=== PATIENT | male | born 1965 | race Caucasian/White ===

== ENCOUNTER → 2020-08-06 10:33 | Outpatient (BNVA) | payer OTHER, SELFPAY | PROVIDERS: Family Provider Nurse Practitioner Family; PCP Nurse Practitioner Family; Visit Provider Internal Medicine | DX: Z20.828 Contact with and (suspected) exposure to other viral communicable diseases (principal) | CPT/HCPCS: 87635 ==

== ENCOUNTER → 2021-08-08 10:45 | Outpatient (BNVA) | payer BC, SELFPAY | PROVIDERS: Family Provider Nurse Practitioner Family; PCP Nurse Practitioner Family; Visit Provider Orthopaedic Surgery | DX: M54.50 Low back pain, unspecified (principal); G89.29 Other chronic pain; M47.816 Spondylosis without myelopathy or radiculopathy, lumbar region | CPT/HCPCS: 72110 ==

== ENCOUNTER → 2021-08-12 11:26 | Outpatient (BNVA) | payer BC, SELFPAY | PROVIDERS: Family Provider Nurse Practitioner Family; PCP Nurse Practitioner Family; Visit Provider Surgery | DX: Z01.812 Encounter for preprocedural laboratory examination (principal); Z20.822 Contact with and (suspected) exposure to COVID-19 | CPT/HCPCS: 87635 ==

== ENCOUNTER 2021-08-15 08:29 | Day surgery (SDC) | payer BC, SELFPAY ==
[2021-08-12 14:04] VITALS: BMI 28.5
--- NOTE | 2021-08-15 08:40 | ANES.PREANE2 ---
Pre-Anesthetic Assessment Pre-Anesthetic Assessment: Height/Weight: Height 1.83 m Weight 95.254 kg Preop Diagnosis: Screening Proposed Procedure: Operation Date: 08/15/21 09:30 Proposed Procedures p Colonoscopy 30491 Z12.11(Not Applicable) - Martin Bethea MD Familial anesthetic complications: None Was Beta Sander taken within 24 hours: N/A Was Clonidine taken within 24 hours: N/A Last intake: > 8 hrs Social: Social History: No alcohol and No tobacco Exam: Pre-Anes Outpt Exam: alert, oriented x 3, clear to auscultation bilaterally and regular rate & rhythm Airway: Cervical ROM: WNL MP: 3 Dentition: Full Musc/skel: Musc/skel: Lower Back Pain Anesthetic Plan: ASA status: 1 Risk of > 500 ml blood loss (7ml/kg in children): No PFSH Anesthesia PFSH: Social History (Updated 08/05/20 @ 14:38 by Darleen Hickey CMA) Smoking and tobacco status: never smoked Alcohol intake: never Data Anesthesia Cardiac Studies: No Data to Display
[2021-08-15 08:59] VITALS: BP 142/103; PULSE 74; RESP 18; TEMP 36.4; O2SAT 98
--- NOTE | 2021-08-15 09:05 | P.HP_ITS ---
Same Day Surgery H&P Indication for Procedure/HPI DATE OF PROCEDURE: August 15, 2021 CHIEF COMPLAINT/INDICATIONFOR SURGICAL PROCEDURE: Screening colonoscopy PREOP DIAGNOSIS: Screening colonoscopy PLANNED PROCEDURE: Operation Date: 08/15/21 09:30 Proposed Procedures p Colonoscopy 68044 Z12.11(Not Applicable) - Martin Bethea MD This is a pleasant 56 years old gentleman referred to my practice to discuss screening colonoscopy. Patient never had a colonoscopy before he reports history of hemorrhoids. No history of colon cancer that he is aware of, denies any bleeding or anesthesia issues. ROS All systems have been reviewed negative except as per the above or per problem list. Medications/Allergies* Home Medications Medication Instructions Recorded Confirmed Type hydrocodone-acetaminophen 1 tab PO Q4H PRN 08/12/21 08/15/21 History Allergies/Adverse Reactions Allergy/AdvReac Type Severity Reaction Status Date / Time No Known Allergies Allergy Verified 08/15/21 09:05 Pertinent History/Comorbid Conditions* Social History Smoking and tobacco status: never smoked Alcohol intake: never Pertinent Exam Findings alert, oriented x 3, clear to auscultation bilaterally, regular rate & rhythm and procedure specific exam findings (Abdominal examination nontender nondistended soft) Recommendations Surgery/Procedure today (Colonoscopy with possible biopsy) Other Plans: Plan of care; After thorough history and physical examination and reviewing the chart, plan to perform screening colonoscopy. I discussed with the patient in details the risks,benefits,alternatives and indications.The risk of aspiration, bleeding, soft tissue injury, perforation of the colon and other potential concomitant complications were explained to the patient in details,also the potential need for Laproscoy/Laparotomy to repair any related complications including but not limited to colectomy and or Closotomy.The patient understood this well and did agree to proceed. Rationale was carefully and clearly discussed with the patient.Appropriate informed consent have been reviewed and signed All questions have been answered and all concerns have been addressed to patient's satisfaction. 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
[2021-08-15] MEDS: sodium chloride 0.9% 1,000 ML 30 ML IV (09:26)
[2021-08-15 10:15] VITALS: BP 132/91; PULSE 74; RESP 12; TEMP 36.2; O2SAT 95
--- NOTE | 2021-08-15 10:19 | ANE.PACU2 ---
Inpatient post-anesthesia follow up: Airway intact: Yes Vital signs: Temperature 97.6 F Pulse Rate 74 Respiratory Rate 18 Blood Pressure 142/103 Pulse Oximetry 98 Oxygen Delivery Me thod Room Air Oxygen Flow Rate Fraction of Inspir ed Oxygen Hydration adequate: Yes Nausea and vomiting: No Pain level: 1 Mental status: Baseline
[2021-08-15 10:26] VITALS: BP 120/92; PULSE 70; RESP 16; O2SAT 92
== END 2021-08-15 10:45 | disposition home or self-care (01) ==
PROVIDERS: PCP Nurse Practitioner Family; Visit Provider Surgery
PROC: 0DJD8ZZ Inspection of Lower Intestinal Tract, Via Natural or Artificial Opening Endoscopic (ICD-10-PCS; CPT 45378; principal; 2021-08-15 09:30)
DX: Z12.11 Encounter for screening for malignant neoplasm of colon (principal); K57.30 Diverticulosis of large intestine without perforation or abscess without bleeding; D12.5 Benign neoplasm of sigmoid colon
CPT/HCPCS: 45380; 88305; J2704; J7030

== ENCOUNTER 2022-11-18 14:12 | Emergency (ER) | payer BC, SELFPAY ==
[2022-11-18 14:22] VITALS: BP 179/104; PULSE 87; RESP 16; TEMP 36.6; O2SAT 98
--- NOTE | 2022-11-18 14:28 | ECG_ITS ---
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 Measurements Intervals [place] Rate: 83 P: 10 IN: 119 QRS: 3 QRSD: 82 T: 94 QT: 333 QTc: 391 Interpretive Statements SINUS RHYTHM WITH SHORT IN INTERVAL NONSPECIFIC T-WAVE ABNORMALITY No previous ECG available for comparison Electronically Signed On 11-18-2022 20:40:32 CDT by Juan R Alford M.D. [email or web address].[email or web address]/store/[id number] f
--- NOTE | 2022-11-18 15:34 | XR_ITS ---
WS: [id number] Exam: XR chest 1V portable [id number] Date/Time of Exam: 11/18/2022 3:34 PM Reason For Exam: cp No priors. The lungs are clear and fully expanded. Normal cardiomediastinal silhouette. Scattered calcified gran ulomas. Regional bony structures appear normal. XR/XR chest 1V portable [id number] IMPRESSION: 1. No acute cardiopulmonary finding.
[2022-11-18 16:13] VITALS: BP 145/105; PULSE 84; RESP 19; TEMP 36.6; O2SAT 95
[2022-11-18 16:46] LABS: Basophils # 0.1 10^3/uL (0.0-0.1); Basophils % 0.6 %; Eosinophils # 0.2 10^3/uL (0.0-0.8); Eosinophils % 2.1 %; Hematocrit 59.1 % (42.0-52.0); Hemoglobin 19.5 g/dL (11.7-16.6); Lymphocytes # 1.3 10^3/uL (0.8-4.8); Lymphocytes % 11.6 %; Mean Corpuscular Hemoglobin 31.7 pg (28.0-34.0); Mean Corpuscular Volume 95.9 fl (80-94); Mean Platelet Volume 9.5 fL (7.4-10.4); Monocytes % 8.9 %; Neutrophils # 8.37 10^3/uL (1.8-7.7); Neutrophils % 76.3 %; Nucleated Red Blood Cells % 0 %; Platelet Count 285 10^3/cmm (130-400); Red Blood Count 6.16 10^6/uL (4.1-5.3); Red Cell Distribution Width 12.6 % (12.1-15.1)
[2022-11-18 17:24] LABS: Troponin(5th) Baseline 6 ng/L (0-15)
[2022-11-18 17:31] LABS: Alanine Aminotransferase 17 U/L (0-41); Albumin Level 3.9 g/dL (3.5-5.2); Alkaline Phosphatase 73 U/L (40-130); Anion Gap 15.6 (5-19); Aspartate Amino Transferase 21 U/L (0-40); Blood Urea Nitrogen 5 mg/dL (6-20); Calcium 8.7 mg/dL (8.5-10.5); Carbon Dioxide 26 mmol/L (22-29); Chloride 99 mmol/L (98-107); Globulin 3.5 g/dL (1.3-4.6); Glomerular Filtration Rate 87.3 mL/min (90-130); Glucose 85 mg/dL (65-115); NT Pro B Type Natriuretic Pept 36 pg/mL (0-125); Osmolality Calculated 279 mOsm/kg (285-295); Potassium 4.6 mmol/L (3.5-5.1); Sodium 136 mmol/L (136-145); Total Bilirubin 0.6 mg/dL (0.15-1.2); Total Protein 7.4 g/dL (6.6-8.7)
[2022-11-18 18:08] VITALS: BP 146/92; PULSE 80; O2SAT 95
--- NOTE | 2022-11-18 18:08 | PC.NURSE ---
VS OBTAINED VIA TECH
--- NOTE | 2022-11-18 18:17 | ECG_ITS ---
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 Measurements Intervals [place] Rate: 85 P: 0 AK: 117 QRS: -5 QRSD: 85 T: -2 QT: 332 QTc: 397 Interpretive Statements SINUS RHYTHM WITH SHORT AK INTERVAL SEPTAL MYOCARDIAL INFARCTION , PROBABLY OLD [40+ ms Q WAVE IN V1/V2] Compared to ECG 11/18/2022 14:28:17 Myocardial infarct finding now present T-wave abnormality no longer present Electronically Signed On 11-18-2022 20:42:15 CDT by Juan R Alford M.D. [email or web address] e. [email or web address].[email or web address]/store/[id number]
[2022-11-18 19:40] LABS: Troponin 5 2HR Delta 0 ABS# (0-10)
== END 2022-11-18 19:25 | disposition left against medical advice (07) ==
PROVIDERS: Physician Assistant; Emergency Provider Family Medicine; PCP Nurse Practitioner Family
DX: Z53.21 Procedure and treatment not carried out due to patient leaving prior to being seen by health care provider (principal)
CPT/HCPCS: 36415; 71045; 80053; 83880; 84484; 85025; 93005

== ENCOUNTER → 2022-11-19 11:53 | Outpatient (BNVA) | payer BC, SELFPAY | PROVIDERS: PCP Nurse Practitioner Family; Visit Provider Nurse Practitioner Family | DX: R94.31 Abnormal electrocardiogram [ECG] [EKG] (principal); R07.9 Chest pain, unspecified; R03.0 Elevated blood-pressure reading, without diagnosis of hypertension; R13.10 Dysphagia, unspecified; R12 Heartburn | CPT/HCPCS: 80061; 84443 ==

== ENCOUNTER 2022-12-18 15:21 | Outpatient (CLI) | payer BC, SELFPAY ==
--- NOTE | 2022-12-18 15:15 | USCV_ITS ---
Yusef Sherman Age: 57 Gender: M : 1965 Exam Date: 12/18/2022 15:40 Ordering Phys: Fermín Aguayo MD ([email or web address]) Technologist: Exam [place] [facility] [place]: chest pain BP: 130 / 73 HR: 90 Rhythm: Sinus Technical Quality: Adequate MEASUREMENTS (Male / Female) Normal Values 2D ECHO LV Diastolic Diameter PLAX 5.2 cm 4.2 - 5.9 / 3.9 - 5.3 cm LV Systolic Diameter PLAX 3.0 cm IVS Diastolic Thickness 0.8 cm 0.6 - 1.0 / 0.6 - 0.9 cm IVS Systolic Thickness 1.6 cm LVPW Diastolic Thickness 1.1 cm 0.6 - 1.0 / 0.6 - 0.9 cm LVPW Systolic Thickness 1.6 cm LVOT Diameter 2.2 cm LV Ejection Fraction 2D Teich 72.5 % LV Ejection Fraction MOD 2C 61.8 % LV Ejection Fraction 2C AL 61.2 % LA Diameter 3.8 cm Aorta at Sinotubular Diameter 2.6 cm IVC Diameter 2.0 cm M-MODE Aortic Annulus Diameter 3.9 cm LA Ao Ratio MM 1.0 MV E Point Septal Separation 0.8 cm DOPPLER AV Peak Velocity 130.0 cm/s LVOT Peak Velocity 119.0 cm/s AV Area Cont Eq vti 5.0 cm squared AV Area Cont Eq pk 3.5 cm squared MV Area PHT 3.6 cm squared Mitral E to A Ratio 1.1 MV E' Velocity 38.5 cm/s Mitral E to MV E' Ratio 7.0 Mitral E to LV E' Lateral Ratio 6.0 Mitral E to LV E' Septal Ratio 8.4 TR Peak Velocity 158.0 cm/s TR Peak Gradient 10.0 mmHg TV Peak E Velocity 106.0 cm/s Right Atrial Pressure 3.0 mmHg Pulmonary Artery Systolic Pressu 13.0 mmHg RV Acceleration Time 0.2 s FINDINGS Left Ventricle Normal left ventricular size, systolic function and wall thickness, with no regional wall motion abnormalities. Left ventricular ejection fraction is estimated at 65 %. Normal diastolic function. Right Ventricle Normal right ventricular size and systolic function. RVSP could not be calculated due to incomplete tricuspid regurgitation velocity profile. Right Atrium Normal right atrial size. Left Atrium Normal left atrial size. Mitral Valve Structurally normal mitral valve. No mitral valve stenosis. No mitral valve regurgitation. Aortic Valve Aortic valve not well visualized. Probably tricuspid aortic valve. No aortic valve stenosis. No aortic valve regurgitation. Tricuspid Valve Structurally normal tricuspid valve. No tricuspid valve stenosis. No tricuspid valve regurgitation. Pulmonic Valve Structurally normal pulmonic valve. Pericardium No pericardial effusion. Aorta Normal size aortic root and proximal ascending aorta. IVC Normal IVC dimension with >50% respiratory change of the inferior vena cava. CONCLUSIONS 1. Normal left ventricular size, systolic function and wall thickness, with no regional wall motion abnormalities. Left ventricular ejection fraction is estimated at 65 %. Normal diastolic function. 2. Normal right ventricular size and systolic function. 3. No significant valvular abnormality. 4. No prior similar studies to compare. Heidi Isaac MD (Electronically Signed) Final Date: 30 December 2022 16:33 S
== END 2022-12-18 15:22 | disposition home or self-care (01) ==
PROVIDERS: PCP Nurse Practitioner Family; Visit Provider Internal Medicine Cardiovascular Disease
DX: R07.9 Chest pain, unspecified (principal); R06.09 Other forms of dyspnea; R94.31 Abnormal electrocardiogram [ECG] [EKG]
CPT/HCPCS: 93306

== ENCOUNTER 2023-02-11 09:06 | Day surgery (SDC) | payer BC, SELFPAY ==
[2023-02-09 13:20] VITALS: BMI 27.1
[2023-02-11 09:24] VITALS: BP 134/95; PULSE 72; RESP 18; TEMP 36.7; O2SAT 95
[2023-02-11] MEDS: sodium chloride 0.9% 1,000 ML 30 ML IV (09:26)
--- NOTE | 2023-02-11 10:14 | ANES.PREANE2 ---
Pre-Anesthetic Assessment Height/Weight: Height 1.83 m Weight 90.718 kg Temp Pulse Resp BP Pulse Ox O2 Del Method 98.1 F 72 18 134/95 95 Room Air 02/11/23 09:24 02/11/23 09:24 02/11/23 09:24 02/11/23 09:24 02/11/23 09:24 02/11/23 09:24 Preop Diagnosis: Dysphagia Operation Date: 02/11/23 10:15 Proposed Procedures p 95728 egd w/balloon dial R11.2,R13.10, K21.9(Not Applicable) - Kavon Whitfield, DO Was Beta Sander taken within 24 hours: N/A Was Clonidine taken within 24 hours: N/A Last intake: Intake Last Liquid Date 02/10/23 Last Liquid Time 22:00 Last Solid Date 02/10/23 Last Solid Time 22:00 Social No alcohol and No tobacco Exam alert, oriented x 3, clear to auscultation bilaterally and regular rate & rhythm Airway Submandibular: within normal limits Cervical ROM: within normal limits Mallampati: Class II Dentition: full History/ROS No significant history except as noted and No significant complaints Pulmonary None reported CV/HEM Hypertension None reported Hepatic None reported GI None reported Metabolic None reported Musc/skel None reported Neuropsych None reported Anesthetic Plan ASA status: 2 Anesthesia: Anesthesia Evaluation and MAC Risk of > 500 ml blood loss (7ml/kg in children): No Medications/Allergies Home Medications Medication Instructions Recorded Confirmed Last Taken Type aspirin 81 mg tablet,delayed 81 mg PO DAILY 90 days #90 tabs 11/19/22 02/09/23 02/10/23 Rx release (Adult Aspirin Regimen) nitroglycerin 0.4 mg sublingual 0.4 mg sublingual Q5M PRN chest 11/19/22 02/11/23 Unknown Rx tablet pain #12 tabs pantoprazole 40 mg tablet,delayed 40 mg PO BID 6 weeks #84 tabs 01/08/23 02/09/23 02/10/23 Rx release (Protonix) doxycycline hyclate 100 mg capsule 100 mg PO BID 02/09/23 02/09/23 02/10/23 History lisinopril 5 mg tablet See Rx Instructions .Route 02/09/23 02/09/23 02/10/23 Rx .COMPLEX #60 tabs Allergies Allergy/AdvReac Type Severity Reaction Status Date / Time No Known Allergies Allergy Verified 01/08/23 16:06 Current Medications Generic Name Dose Route Start Last Admin Trade Name Freq PRN Reason Stop Dose Admin Sodium Chloride 1,000 mls @ 30 mls/hr 02/11/23 09:15 02/11/23 09:26 Sodium Chloride 0.9% IV 02/12/23 09:14 30 mls/hr .Q24H JONNY Administration PFSH Anesthesia Medical History (Updated 01/08/23 @ 16:50 by Kavon Whitfield DO) No pertinent past medical history Surgical History (Updated 01/08/23 @ 16:47 by Kavon Whitfield DO) History of colonoscopy History of elbow surgery Social History Smoking and tobacco status: never smoked Alcohol intake: never Substance/Drug Use: never Data Anesthesia Cardiac Studies: Echocardiogram 12/18/22
--- NOTE | 2023-02-11 11:11 | PM.HP ---
Providers/Chief Complaint Primary Care Provider: Patricia Rodriguez NP Chief Complaint: R11.2, R13.10, K21.9 History of Present Illness Yusef Sherman is a 57 year old male Medications/Allergies Home Medications Medication Instructions Recorded Confirmed Last Taken Type aspirin 81 mg tablet,delayed 81 mg PO DAILY 90 days #90 tabs 11/19/22 02/09/23 02/10/23 Rx release (Adult Aspirin Regimen) nitroglycerin 0.4 mg sublingual 0.4 mg sublingual Q5M PRN chest 11/19/22 02/11/23 Unknown Rx tablet pain #12 tabs pantoprazole 40 mg tablet,delayed 40 mg PO BID 6 weeks #84 tabs 01/08/23 02/09/23 02/10/23 Rx release (Protonix) doxycycline hyclate 100 mg capsule 100 mg PO BID 02/09/23 02/09/23 02/10/23 History lisinopril 5 mg tablet See Rx Instructions .Route 02/09/23 02/09/23 02/10/23 Rx .COMPLEX #60 tabs Allergies Allergy/AdvReac Type Severity Reaction Status Date / Time No Known Allergies Allergy Verified 01/08/23 16:06 PFSH Acute PFSH: Medical History (Updated 01/08/23 @ 16:50 by Kavon Whitfield DO) No pertinent past medical history Surgical History (Updated 01/08/23 @ 16:47 by Kavon Whitfield DO) History of colonoscopy History of elbow surgery Social History Smoking and tobacco status: never smoked Alcohol intake: never Substance/Drug Use: never Vitals/I&O/Wt Last Vital Signs Temp 98.1 F 02/11/23 09:24 Pulse 72 02/11/23 09:24 Resp 18 02/11/23 09:24 BP 134/95 02/11/23 09:24 Pulse Ox 95 02/11/23 09:24 O2 Del Method Room Air 02/11/23 09:24 Weight last 48 hrs Weight 200 lb A&P Assessment and plan (1) Dysphagia: Plan EGD with possible balloon dilation Attestations Medical Necessity Statement*: Home Coding Level of Care Code Acute Code for Chg Fwd Diagnoses Dysphagia R13.10
[2023-02-11 11:30] VITALS: BP 116/85; PULSE 78; RESP 20; TEMP 36.1; O2SAT 93
[2023-02-11 11:45] VITALS: BP 121/81; PULSE 71; RESP 18; O2SAT 97
--- NOTE | 2023-02-11 14:57 | ANE.PACU2 ---
Inpatient post-anesthesia follow up: Airway intact: Yes Vital signs: Temperature 97 F Pulse Rate 71 Respiratory Rate 18 Blood Pressure 121/81 Pulse Oximetry 97 Oxygen Delivery Me thod Room Air Oxygen Flow Rate 4 Fraction of Inspir ed Oxygen Hydration adequate: Yes Nausea and vomiting: No Pain level: 2 Mental status: Baseline
== END 2023-02-11 12:10 | disposition home or self-care (01) ==
PROVIDERS: PCP Nurse Practitioner Family; Visit Provider Surgery
DX: R13.10 Dysphagia, unspecified (principal); K31.819 Angiodysplasia of stomach and duodenum without bleeding
CPT/HCPCS: 43239; 88305; J2704; J7030

== ENCOUNTER → 2023-12-30 16:42 | Outpatient (BNVA) | payer BC, SELFPAY | PROVIDERS: PCP Nurse Practitioner Family; Visit Provider Nurse Practitioner Family | DX: E78.5 Hyperlipidemia, unspecified (principal); I10 Essential (primary) hypertension; Z12.5 Encounter for screening for malignant neoplasm of prostate; R53.83 Other fatigue; N40.0 Benign prostatic hyperplasia without lower urinary tract symptoms; K21.9 Gastro-esophageal reflux disease without esophagitis; M47.816 Spondylosis without myelopathy or radiculopathy, lumbar region; M43.10 Spondylolisthesis, site unspecified; M54.9 Dorsalgia, unspecified; M25.50 Pain in unspecified joint | CPT/HCPCS: 80053; 80061; 82306; 82607; 82746; 84402; 84403; 84443; 85025; 85651; 86140; 86160; 86162; 86200; 86235; 86255; 86376; 86431; 86618; 86664; 86665; 86666; 86757; G0103 ==